=== PATIENT | female | born 1960 | race Caucasian/White ===

== ENCOUNTER 2020-08-08 16:48 | Outpatient (REF) | payer OTHER, SELFPAY | END 2020-08-08 16:49 | disposition home or self-care (01) | LOC: HO.LAB 16:48 | PROVIDERS: Visit Provider Internal Medicine | DX: Z20.822 Contact with and (suspected) exposure to COVID-19 (principal) | CPT/HCPCS: 36415; C9803; U0003 ==

== ENCOUNTER 2020-09-17 11:10 | Outpatient (REF) | payer OTHER, SELFPAY | END 2020-09-17 11:11 | disposition home or self-care (01) | LOC: HO.LAB 11:10 | PROVIDERS: Visit Provider Internal Medicine | DX: Z20.822 Contact with and (suspected) exposure to COVID-19 (principal) | CPT/HCPCS: 36415; C9803; U0003; U0005 ==

== ENCOUNTER 2021-07-21 12:14 | Outpatient (REF) | payer OTHER, SELFPAY | END 2021-07-21 12:15 | disposition home or self-care (01) | LOC: HO.HMGCLDS 12:14 | PROVIDERS: Visit Provider Internal Medicine | DX: Z20.822 Contact with and (suspected) exposure to COVID-19 (principal) | CPT/HCPCS: C9803; U0003; U0005 ==

== ENCOUNTER 2021-09-19 09:39 | Outpatient (REF) | payer MEDICAID, SELFPAY ==
[2021-09-19 10:08] LABS: COVID-19 Test Negative (Negative)
== END 2021-09-19 09:40 | disposition home or self-care (01) ==
LOC: HO.LAB 09:39
PROVIDERS: Visit Provider Internal Medicine
DX: Z20.822 Contact with and (suspected) exposure to COVID-19 (principal)
CPT/HCPCS: 87635; C9803

== ENCOUNTER 2022-02-13 07:46 | Outpatient (REF) | payer OTHER, SELFPAY ==
[2022-02-13 08:27] LABS: IDNOW Serial# 9DD0AD1C
[2022-02-13 08:28] LABS: COVID-19 Test Negative (Negative)
== END 2022-02-13 07:47 | disposition home or self-care (01) ==
LOC: HO.LAB 07:46
PROVIDERS: Visit Provider Internal Medicine
DX: Z20.822 Contact with and (suspected) exposure to COVID-19 (principal)
CPT/HCPCS: 87635; C9803

== ENCOUNTER 2022-02-20 09:33 | Outpatient (REF) | payer OTHER, SELFPAY ==
[2022-02-20 10:37] LABS: COVID-19 Test Negative (Negative); IDNOW Serial# 55D5AD1C
== END 2022-02-20 09:34 | disposition home or self-care (01) ==
LOC: HO.LAB 09:33
PROVIDERS: Visit Provider Internal Medicine
DX: Z20.822 Contact with and (suspected) exposure to COVID-19 (principal)
CPT/HCPCS: 87635; C9803

== ENCOUNTER 2025-03-06 12:50 | Inpatient (IN) | payer BC, SELFPAY ==
[2025-03-06] VITALS (8 sets, daily range): BP systolic 107–153; BP diastolic 64–80; PULSE 64–83; RESP 15–18; TEMP 36.5–36.6; O2SAT 95–98; BMI 28.0
--- NOTE | ~2025-03-06 | MR_ITS ---
EXAMINATION: MR BRAIN WITHOUT CONTRAST CLINICAL INFORMATION: Subacute versus old stroke. COMPARISON: No prior MRI. Correlation made with CT and CTA head 03/06/2025. TECHNIQUE: MRI of the brain was obtained using routine sequences without contrast. Examination performed on a 1.5 Leyda Siemens high-field unit. FINDINGS: There is no diffusion restriction. There is no intracranial hemorrhage, acute infarction, mass effect, or edema. Ventricles, sulci, and cisterns are normal in size and configuration for patient age. No shift of midline. No abnormal hemosiderin deposition is identified. There are a few scattered punctate and minimally confluent foci of white matter T2 hyperintensity in the periventricular, subcortical, and hemispheric deep white matter. These foci are nonspecific but statistically most likely relate to small vessel ischemic changes. Midline structures appear normally formed. The pituitary gland appears normal. Posterior fossa structures appear normal. Cerebellar tonsils are appropriately located. Major flow voids are preserved within the skull base. The globes and orbital contents demonstrate no abnormalities. Paranasal sinuses are clear bilaterally. Nasal septum is midline without spur. The mastoids and tympanic cavities are normally aerated. Extracranial soft tissues demonstrate no abnormalities. No suspicious bone marrow changes are evident. Atlantoaxial joint is normal. MR/MR head/brain wo con IMPRESSION: 1. No evidence of intracranial hemorrhage, acute infarction, mass effect, or edema. 2. There are mild changes of small vessel ischemia. Electronically signed by: Juan Davis MD 03/07/2025 02:36 PM EDT
--- NOTE | ~2025-03-06 | CT_ITS ---
EXAMINATION: CT HEAD WITHOUT CONTRAST (STROKE PROTOCOL) CLINICAL INFORMATION: Stroke protocol. Left-sided facial numbness and left upper extremity COMPARISON: None available. TECHNIQUE: Contiguous axial imaging was performed from the skull base to vertex without intravenous administration of contrast. This CT examination was performed using dose optimization techniques as appropriate, variously including the following: *Automated exposure control *Adjustment of mA and/or kV according to patient size (this includes techniques or standardized protocols for targeted exams where dose is matched to indication/reason for exam; i.e. extremities or head) *Use of iterative reconstruction technique. DLP: 646 mGy centimeter. FINDINGS: No acute intracranial hemorrhage, mass effect, midline shift, hydrocephalus or Balderas-white matter differentiation is normal. Patchy hypodensity left periventricular white matter, left frontal pole. No dense MCA sign. Calcified plaques in the cavernous supraclinoid segments, bilaterally. 4 mm calcification at the right ICA terminus region. Posterior cranial fossa contents demonstrated no acute hemorrhage or gross mass effect. Normal position of the cerebellar tonsils. Sellar/suprasellar region demonstrated no gross masses. Poor pneumatization of the frontal sinuses. No air-fluid levels in the paranasal sinuses. Small retention cyst, left maxillary sinus. Tympanic cavities and mastoid cells are aerated. CT/CT head for STROKE IMPRESSION: No acute intracranial hemorrhage. White matter hypodensity left frontal pole likely subacute to old vascular insult/small vessel occlusive disease. Atherosclerosis disease, both ICAs pronounced at the right ICA terminus. This critical result was discussed via tiger connect with physician professional nursing assistant Yuli Null at 1:21 PM hours on on March 06, 2025. It was ascertained that the content and urgency of the report was understood at the time of direct communication. Electronically signed by: Krishan Parks MD 03/06/2025 01:24 PM EDT
--- NOTE | ~2025-03-06 | CT_ITS ---
EXAMINATION: CTA NECK WITH CONTRAST (STROKE) CTA BRAIN WITH CONTRAST (STROKE) CLINICAL INFORMATION: Suspect acute stroke. Assess for major vessel occlusion. Left facial and hand numbness. Please call report. COMPARISON: None available. TECHNIQUE: CTA of the head and neck was performed in the axial plane from the mediastinum to the skull vertex using 70 mL Omnipaque 350 intravenous contrast. Additional reformatted multiplanar images including maximum intensity projection MIP images are generated on the CT workstation. This CT examination was performed using dose optimization techniques as appropriate, variously including the following: *Automated exposure control *Adjustment of mA and/or kV according to patient size (this includes techniques or standardized protocols for targeted exams where dose is matched to indication/reason for exam; i.e. extremities or head) *Use of iterative reconstruction technique DLP: 772 mGy centimeter FINDINGS: The degree of stenosis determined by criteria similar to NASCET. Inadequate evaluation secondary to patient's motion artifact, specifically at the carotid bulbs and proximal ICAs. Chest CTA: No aneurysm or dissection, thoracic aortic arch. Calcified plaques. Neck CTA: Right CCA: Normal patency. No focal stenosis. No intimal flap. Right ICA: Tortuosity. Retropharyngeal trajectory. Normal patency. No gross intimal flap. Questionable noncalcified plaque in the proximal segment no fully evaluated due to patient's motion artifact. Left CCA: Normal patency. No focal stenosis. No intimal flap. Left ICA: Tortuosity. Normal patency. No gross focal stenosis or intimal flap. V1/V2 segments: Normal patency. No focal stenosis. No intimal flap. Codominant vertebral arteries.. Brain CTA: Anterior cerebral circulation: ICAs: Calcified plaques in the cavernous supraclinoid segments. No focal stenosis. No abrupt cut off. MCA's: Normal patency. No focal stenosis. No abrupt cut off. Bifurcation/trifurcation demonstrated no gross vascular irregularity. ACAs: Normal patency. No focal stenosis. No abrupt cut off. Ophthalmic arteries are patent. Anterior communicating artery is patent. Posterior communicating arteries are patent, the right is robust. Posterior cerebral circulation: V3/V4 segments: Normal patency. No focal stenosis. No intimal flap. Posterior inferior cerebral arteries are patent. Basilar artery is patent without focal stenosis or intimal flap. Superior cerebellar arteries are patent. Left anterior inferior cerebellar arteries patent. crystal calibrator: Normal patency. No focal stenosis. No abrupt cut off. Ancillary findings: Dominant right internal jugular bulb/internal jugular vein. Main cerebral venous sinuses are patent. No gross abnormal enhancement in the intra-axial or the extra-axial compartment of the cranium. Pulmonary patchy groundglass/mosaic pattern. Multilevel cervical spondylosis pronounced at C5-6. CT/CT angio head neck STROKE IMPRESSION: No main cerebral artery occlusion or embolus. No dissection. No gross cerebral aneurysm. Atherosclerosis disease. Retropharyngeal trajectory, right ICA. Probable small airway disease versus small pulmonary artery disease. Multilevel cervical spondylosis. Limited by patient's motion artifact. This critical test result is communicated via Emer[employer]See connect to: Physician collections assistant in the emergency department Yuli Null at 1:37 PM on March 06, 2025. Electronically signed by: Krishan Parks MD 03/06/2025 01:45 PM EDT
--- NOTE | 2025-03-06 12:55 | ECG_ITS ---
Test Reason : FACIAL NUMBNESS Blood Pressure : */* mmHG Vent. Rate : 68 BPM Atrial Rate : 68 BPM P-R Int : 186 ms QRS Dur : 90 ms QT Int : 436 ms P-R-T Axes : 35 -6 45 degrees QTcB Int : 463 ms Normal sinus rhythm Normal ECG No previous ECGs available Referred By: Yuli Georges Electronically Signed By: ABRIL HERNANDEZ MD
--- NOTE | 2025-03-06 12:56 | ED_ITS ---
HPI - General Adult General Chief complaint: General Medical Stated complaint: left side of face numb and tingliness Time Seen by Provider: 03/06/25 13:10 Source: patient and RN notes reviewed Mode of arrival: ambulatory Limitations: no limitations History of Present Illness ED Provider: Marleni Simmons PA-C HPI narrative: This is a 64-year-old female, with a past medical history of asthma, who presents emergency department with concerns of acute onset of numbness tingling into the left upper and left lower lip with associated left thumb and 2nd through 4th finger numbness and tingling which started at approximately 12:15PM. Patient reports that she was on the phone with her daughter when her symptoms started. She states that since the onset she feels as though her numbness and tingling in her left upper and lower lip have improved and she no longer has tingling into her left digits. She does endorse some mild dizziness and headache. She has been in her usual state of health. No fevers, chills, chest pain, shortness of breath, abdominal pain, nausea, vomiting or diarrhea. MD complaint: Numbness tingling in lip Onset (ago): hour(s) Radiation: non-radiation Pain Consistency: constant Relieving factors: none Exacerbating factors: none Associated symptoms: denies other symptoms Treatments prior to arrival: none Related Data Home Medications ?Medication ?Instructions ?Recorded ?Confirmed albuterol sulfate 2.5 mg/3 mL 2.5 mg inhalation Q4H wh eezing 03/06/25 03/06/25 (0.083 %) solution for nebulization albuterol sulfate 90 mcg/actuation 2 puff inhalation Q 4-6H PRN 03/06/25 03/06/25 aerosol inhaler Shortness Of Breath Or Wheez ing omega-3 fatty acids 1,000 mg 1,000 mg PO DAILY 5 03/06/25 capsule Allergies Allergy/AdvReac Type Severity Reaction Status Date / Time No Known Allergies Allergy Verified 03/06/25 12:56 Review of Systems 2 Review of Systems: Yes all other systems are reviewed and are negative Constitutional: Constitutional: Reports as per [facility] Past Medical History Attestation statement: The following information was validated with the patient. Social History Social History Patient Tobacco Use Status: Never used Tobacco Advance Directives: No Advance Directives Information Provided: No Do you have a plan to hurt others: No Plan Nutrition Risks: No Nutritional Risk Physical Exam ED Vital Signs: Vital Signs - 24 hr 03/06/25 12:53 03/06/25 13:24 03/06/25 13:40 Temperature 98 F Pulse Rate 83 71 78 Respiratory Rate 18 15 17 Blood Pressure 153/80 H 139/69 132/64 Pulse Oximetry 97 95 97 Oxygen Delivery Method Room Air Room Air Room Air BMI result Body Mass Index 28.0 Const General: cooperative, comfortable and no acute distress Orientation/consciousness: patient oriented x3 Limitations: no limitations HENMT Head: Yes normal to inspection, Yes normocephalic and Yes atraumatic Ears: hearing grossly normal bilaterally General nose exam: Normal external nose present Face and sinus: Yes normal facial exam Mouth: Normal oral and palatal mucosa present, oropharynx normal and moist mucous membranes Throat: Yes posterior oropharynx normal Eyes General: appearance normal, both eyes and all related structures Eyelids: Yes eyelids normal Conjunctivae: conjunctivae normal Sclerae: sclerae normal Pupils: Equal, round and reactive pupils present EOM: EOMs intact bilaterally Neck Neck: Yes normal visual inspection, Yes full ROM and Yes no lymphadenopathy Lymphatic: no lymphadenopathy noted Chest Chest palpation & inspection: normal inspection of the chest Resp Effort & Inspection: normal respiratory effort and able to speak in complete sentences Auscultation: clear to auscultation bilaterally, no crackles, no rales, no rhonchi and no wheezes Cardio Rate: regular rate Rhythm: regular rhythm Heart sounds: S1 normal heart sound present and S2 normal heart sound present GI Inspection: Yes normal to inspection Skin General skin exam: no rashes or lesions noted Trauma: no lacerations or abrasions Wounds: no wounds Neuro General: patient oriented x3 and moves all extremities Cranial nerves: Yes CN's II-XII intact bilaterally and Yes Equal, round and reactive pupils present Gait exam (Neuro): Normal gait present Motor exam (neuro): 5/5 motor strength present throughout Coordination: [id number] test normal Romberg Test: Negative Pupils: Normal pupillary reactivity/response: bilateral Extrem General: Yes normal to inspection Right upper extremity: normal to inspection Left upper extremity: normal to inspection Right lower extremity: normal to inspection Left lower extremity: normal to inspection NIH Stroke Scale Internal: Initial- Upon Arrival Time: 13:25 Level of Consciousness: Alert Level of Consciousness Questions: Answers both questions correctly Level of Consciousness Commands: Performs both tasks correctly Best Gaze: Normal Visual: No visual loss Facial Palsy: Normal Motor Arm (Right): No drift Motor Arm (Left): No drift Motor Leg (Right): No drift Motor Leg (Left): No drift Limb Ataxia: Absent Sensory: Normal Best Language: No aphasia Dysarthia: Normal Extinction and Inattention: No abnormality Score: 0 Course Course Course Narrative: This is a Rapid Medical Examination (RME) performed by Doris Georges PA-C in triage. Full HPI, ROS, assessment and treatment plan per primary provider in the Main ED. Hx: 64 yo F here w/ left facial numbness around left upper lip x15 mins, slowly resolving. feels like the area is waking up now . also reports numbness to left thumb and finger tips of left hand. assoc mild headache and dizziness. no hx VTE. no thinners. PE/vitals: NIH 0. well appearing, ambulating w/ steady gait. Plan: stroke protocol ordered. patient brought back to CT Medications Administered Discontinued Medications Generic Name Dose Route Start Last Admin Trade Name Freq PRN Reason Stop Dose Admin Aspirin 81 mg 03/06/25 13:45 03/06/25 14:03 Aspirin 81 Mg Tab.Chew PO 03/06/25 13:46 81 mg ONCE ONE Administration Iohexol 100 ml 03/06/25 13:20 03/06/25 13:20 Iohexol 350 Mg/Ml 100 Ml Infus..Btl IV 03/06/25 13:21 70 ml ONCE ONE Administration Medical Decision Making Medical Decision Making [facility] Narrative: This is a 64-year-old female, with a past medical history of asthma, who presents emergency department with concerns of acute onset of numbness tingling into the left upper and left lower lip with associated left thumb and 2nd through 4th finger numbness and tingling which started at approximately 12:15PM. On arrival, patient mildly hypertensive at 153/80, all other vital signs within normal limits. She is speaking full sentences under no acute distress. She has an NIH score of 0, she is not a TNK candidate. Patient was made a stroke alert by the triage provider. Course: 1:46 PM 03/06/2025 (Marleni Simmons PA-C): CT head without contrast revealing no acute intracranial hemorrhage, there is a white matter hypodensity left frontal pole likely subacute to old vascular insult/small vessel occlusive disease, atherosclerotic disease both ICAs pronounced at the right ICA terminus. CT angio negative for any acute findings. Labs returned, she has no leukocytosis, stable H&H, chemistry revealing no significant electrolyte derangement, triglycerides elevated at 263, cholesterol 207, LDL 118, HDL 37. EKG normal sinus rhythm with no STEMI appreciated. Given patient has elevated lipid panel, as well as old vascular insult/small vessel occlusive disease, with these symptoms, patient will be best served on the medical service for MRI to rule out TIA. Discussed case with my attending physician, Dr. Gonzales, we will give Asprin 81mg PO. Discussed with hospitalist, transfer of care initiated Differential Diagnosis Differential Diagnoses: The differential diagnosis associated with the presentation includes TIA, CVA, anxiety, electrolyte derangement Lab Data [facility] Lab Attestation statement: I reviewed the patient's lab results. See MDM and course 03/06/25 13:05 03/06/25 13:05 Labs: Lab Results 03/06/25 03/06/25 Range/Units 13:04 13:05 WBC 5.6 (4.8-10.8) X10*3/uL RBC 5.32 (4.20-5.50) X10*6/uL Hgb 13.8 (12.0-16.0) g/dl Hct 41.6 (37.0-47.0) % MCV 78.2 L (80.0-98.0) fL MCH 25.9 L (27.0-33.0) pg MCHC 33.2 (31.0-35.0) g/dl RDW 13.8 (11.0-16.0) % Plt Count 203 (160-400) X10*3/uL MPV 10.5 (9.4-12.3) fL Immature Gran % (Auto) 0.2 (0.0-0.4) % Neut % (Auto) 48.9 (45-73) % Lymph % (Auto) 40.1 H (20-40) % Stone % (Auto) 7.2 (2-11) % Eos % (Auto) 2.7 (0-4) % Baso % (Auto) 0.9 (0-2) % Lymph # (Auto) 2.2 (1.2-4.9) X10*3/uL Stone # (Auto) 0.4 (0.1-1.2) X10*3/uL Eos # (Auto) 0.2 (0.0-0.4) X10*3/uL Baso # (Auto) 0.1 (0.0-0.2) X10*3/uL Abs Immat Gran (auto) 0.01 (0.00-0.03) X10*3/uL Absolute Neuts (auto) 2.7 (2.0-8.3) x10*3/uL Absolute Nucleated RBC 0.000 (0.0-0.012) X10*3/uL Nucleated RBC % (auto) 0.0 (0.0-0.2) /100WBC PT 10.6 L (10.9-12.4) SEC INR 0.9 (0.9-1.1) APTT 28.6 (26.7-34.1) SEC Sodium 141 (135-145) mmol/L Potassium 4.1 (3.3-5.1) mmol/L Chloride 108 (96-108) mmol/L Carbon Dioxide 25 (22-29) mmol/L Anion Gap 12 (12-20) BUN 17 H (9-16) mg/dL Creatinine 0.64 (0.5-1.4) mg/dL Estim Creat Clear Calc 88.7 Estimated GFR > 60 POC Glucose 112 (60-115) mg/dL Random Glucose 104 (60-115) mg/dL Calcium 9.3 (8.4-10.2) mg/dL Troponin I High Sens < 2.7 (<3.5-17.0) ng/L Triglycerides 263 H (<150) mg/dL Cholesterol 207 H (<200) mg/dL LDL Cholesterol, Calc 118 H (<100) mg/dL HDL Cholesterol 37 L (>40) mg/dL Radiology Impression Discussion of test interpretation with radiology: I have reviewed the radiologist's reading. Radiologist Impression: COMPARISON: None available. TECHNIQUE: CTA of the head and neck was performed in the axial plane from the mediastinum to the skull vertex using 70 mL Omnipaque 350 intravenous contrast. Additional reformatted multiplanar images including maximum intensity projection MIP images are generated on the CT workstation. This CT examination was performed using dose optimization techniques as appropriate, variously including the following: *Automated exposure control *Adjustment of mA and/or kV according to patient size (this includes techniques or standardized protocols for targeted exams where dose is matched to indication/reason for exam; i.e. extremities or head) *Use of iterative reconstruction technique DLP: 772 mGy centimeter FINDINGS: The degree of stenosis determined by criteria similar to NASCET. Inadequate evaluation secondary to patient's motion artifact, specifically at the carotid bulbs and proximal ICAs. Chest CTA: No aneurysm or dissection, thoracic aortic arch. Calcified plaques. Neck CTA: Right CCA: Normal patency. No focal stenosis. No intimal flap. Right ICA: Tortuosity. Retropharyngeal trajectory. Normal patency. No gross intimal flap. Questionable noncalcified plaque in the proximal segment no fully evaluated due to patient's motion artifact. Left CCA: Normal patency. No focal stenosis. No intimal flap. Left ICA: Tortuosity. Normal patency. No gross focal stenosis or intimal flap. V1/V2 segments: Normal patency. No focal stenosis. No intimal flap. Codominant vertebral arteries.. Brain CTA: Anterior cerebral circulation: ICAs: Calcified plaques in the cavernous supraclinoid segments. No focal stenosis. No abrupt cut off. MCA's: Normal patency. No focal stenosis. No abrupt cut off. Bifurcation/trifurcation demonstrated no gross vascular irregularity. ACAs: Normal patency. No focal stenosis. No abrupt cut off. Ophthalmic arteries are patent. Anterior communicating artery is patent. Posterior communicating arteries are patent, the right is robust. Posterior cerebral circulation: V3/V4 segments: Normal patency. No focal stenosis. No intimal flap. Posterior inferior cerebral arteries are patent. Basilar artery is patent without focal stenosis or intimal flap. Superior cerebellar arteries are patent. Left anterior inferior cerebellar arteries patent. director of logistics: Normal patency. No focal stenosis. No abrupt cut off. Ancillary findings: Dominant right internal jugular bulb/internal jugular vein. Main cerebral venous sinuses are patent. No gross abnormal enhancement in the intra-axial or the extra-axial compartment of the cranium. Pulmonary patchy groundglass/mosaic pattern. Multilevel cervical spondylosis pronounced at C5-6. CT/CT angio head neck STROKE IMPRESSION: No main cerebral artery occlusion or embolus. No dissection. No gross cerebral aneurysm. Atherosclerosis disease. Retropharyngeal trajectory, right ICA. Probable small airway disease versus small pulmonary artery disease. Multilevel cervical spondylosis. Limited by patient's motion artifact. This critical test result is communicated via [employer] connect to: Physician orthodontic assistant in the emergency department Yuli Null at 1:37 PM on March 06, 2025. Electronically signed by: Krishan Parks MD 03/06/2025 01:45 PM EDT RP Dictated By: Krishan Ballard MD COMPARISON: None available. TECHNIQUE: Contiguous axial imaging was performed from the skull base to vertex without intravenous administration of contrast. This CT examination was performed using dose optimization techniques as appropriate, variously including the following: *Automated exposure control *Adjustment of mA and/or kV according to patient size (this includes techniques or standardized protocols for targeted exams where dose is matched to indication/reason for exam; i.e. extremities or head) *Use of iterative reconstruction technique. DLP: 646 mGy centimeter. FINDINGS: No acute intracranial hemorrhage, mass effect, midline shift, hydrocephalus or Balderas-white matter differentiation is normal. Patchy hypodensity left periventricular white matter, left frontal pole. No dense MCA sign. Calcified plaques in the cavernous supraclinoid segments, bilaterally. 4 mm calcification at the right ICA terminus region. Posterior cranial fossa contents demonstrated no acute hemorrhage or gross mass effect. Normal position of the cerebellar tonsils. Sellar/suprasellar region demonstrated no gross masses. Poor pneumatization of the frontal sinuses. No air-fluid levels in the paranasal sinuses. Small retention cyst, left maxillary sinus. Tympanic cavities and mastoid cells are aerated. CT/CT head for STROKE IMPRESSION: No acute intracranial hemorrhage. White matter hypodensity left frontal pole likely subacute to old vascular insult/small vessel occlusive disease. Atherosclerosis disease, both ICAs pronounced at the right ICA terminus. This critical result was discussed via [employer] connect with physician orthodontic assistant Yuli Null at 1:21 PM hours on on March 06, 2025. It was ascertained that the content and urgency of the report was understood at the time of direct communication. Electronically signed by: Krishan Parks MD 03/06/2025 01:24 PM EDT RP Dictated By: Krishan Ballard MD External Record Review External record reviewed: Inpatient record, Office record, Outpatient record, Prior outpatient labs, Prior outpatient radiology, Primary care record and Outside ED record Critical Care Time Critical Care Time Critical Care Time: Yes Total Critical Care Time: 63 Attestation: I have personally provided critical care time exclusive of time spent on separately billable procedures. Time includes review of lab data, radiology results, discussion with consultants, and monitoring for potential decompensation. Intervention performed as documented. Discharge Plan Discharge Clinical Impression: Left facial numbness Patient Disposition: Admitted As Inpatient Interventions: Admission Worksheet (ED) Last Done: 03/06/25 16:17
--- NOTE | 2025-03-06 13:00 | PC.NURSE ---
Pt brought back from triage. Presented with sudden onset left arm numbness/tingling, slight left nasolabial droop. Clear speech. A/ox4. MAEE with good strength. PERLLA. Denies headache, n/v. 18LAC placed and pt taken to CT. POC done and charted. Plan of care ongoing
[2025-03-06 13:09] LABS: Glucose, Whole Blood 112 mg/dL (60-115)
[2025-03-06 13:10] LABS: MANUAL DIFF FLAG NO
[2025-03-06 13:12] LABS: Hematocrit 41.6 % (37.0-47.0); Hemoglobin 13.8 g/dl (12.0-16.0); Imm Gran Abs Auto 0.01 X10*3/uL (0.00-0.03); Imm Gran Pct Auto 0.2 % (0.0-0.4); Lymphocytes Absolute Auto 2.2 X10*3/uL (1.2-4.9); Mean Corpuscular HGB Conc 33.2 g/dl (31.0-35.0); Mean Corpuscular Hemoglobin 25.9 pg (27.0-33.0); Mean Corpuscular Volume 78.2 fL (80.0-98.0); NRBC Abs Auto 0.000 X10*3/uL (0.0-0.012); NRBC Pct Auto 0.0 /100WBC (0.0-0.2); Platelet Count 203 X10*3/uL (160-400); Red Blood Count 5.32 X10*6/uL (4.20-5.50); White Blood Count 5.6 X10*3/uL (4.8-10.8)
[2025-03-06 13:18] LABS: INTERNATIONAL NORM RATIO 0.9 (0.9-1.1); Prothrombin Time 10.6 SEC (10.9-12.4)
[2025-03-06] MEDS: iohexoL 350 MG/ML 100 ML INFUS..BTL IV (13:20)
[2025-03-06 13:21] LABS: Partial Thromboplastin Time 28.6 SEC (26.7-34.1)
[2025-03-06 13:31] LABS: Anion Gap 12 (12-20); Blood Urea Nitrogen 17 mg/dL (9-16); Calcium 9.3 mg/dL (8.4-10.2); Carbon Dioxide 25 mmol/L (22-29); Chloride 108 mmol/L (96-108); Cholesterol 207 mg/dL (<200); Creatinine Clr Calc Pharmacy 88.7; Estimated Glomerular Filt Rate > 60; HDL Cholesterol 37 mg/dL (>40); Potassium 4.1 mmol/L (3.3-5.1); Sodium 141 mmol/L (135-145); Triglycerides 263 mg/dL (<150)
[2025-03-06 13:32] LABS: Stroke Lab Use COMPLETE
[2025-03-06 13:36] LABS: Troponin-I High Sensitivity < 2.7 ng/L (<3.5-17.0)
--- OUTSIDE RECORDS SUMMARY | 2025-03-06 14:56 | XMS_ITS | Clinical Summary ---
Author Organization [facility] Address [address] [place] [address] Phone Care Team Providers Care Visor Installer Name Role Phone Unavailable Primary Care Provider Unavailabl e Allergies No known active allergies Encounters Date Type Department Care Team Description 12/14/2024 Telephone [facility] [address] [place] [id number] Aparna Joel MD Results from Last 3 Months Surgical History Surgery Date Site/Laterality Comments SECTION PROCEDURE: HISTORICAL APPENDECTOMY PROCEDURE: HISTORICAL APPENDECTOMY TUBAL LIGATION PROCEDURE: HISTORICAL TUBAL LIGATION Medical History Medical History Date Comments Gastritis DX:Gastritis Family History Medical History Relation Name Comments Other cancer Mother Relation Name Status Comments Mother Social History Tobacco Use Types Packs/Day Years Used Date Smoking Tobacco: Never Alcohol Use Standard Drinks/Week Comments No 0 (1 standard drink = 0.6 oz pur e alcohol) Comments Unknown Sex and Gender Information Value Date Recorded Sex Assigned at Not on file Legal Sex Female 7:42 PM EDT Gender Identity Not on file Sexual Orientation Not on file Obstetrics History Plan of Treatment Health Maintenance Due Date Last Done Comments Breast Cancer Screening 1961 Pneumococcal Vaccine: 50+ Years (1 of 2 - PCV) 1980 Cervical Cancer Screening: P ap Smear 1982 Zoster Vaccines (1 of 2) 2011 RSV Immunization Adult Patients (1 - Risk 60-74 years 1-dose series) 2021 Cholesterol Screening (Lipid Panel) 01/02/2022 Colorectal Cancer Screening: Colonoscopy 01/02/2022 HIV Screening 01/02/2022 Hepatitis C Screening 01/02/2022 Social Influencers of Health Screening 01/02/2022 COVID-19 Vaccine (1 - 2023-2 5 season) 2024 Depression Screening 07/19/2024 Influenza Vaccine (#1) 2025 DTaP,Tdap,and Td Vaccines (3 - Td or Tdap) 08/15/2031 08/15/2021, 09/13/2008 HIB Vaccines Aged Out No longer eligi ble based on patient's age to complete this topic HPV Vaccines Aged Out No longer eligi ble based on patient's age to complete this topic Hepatitis A Vaccines Aged Out No long er eligible based on patient's age to complete this topic Hepatitis B Vaccines Aged Out No long er eligible based on patient's age to complete this topic IPV Vaccines Aged Out No longer eligi ble based on patient's age to complete this topic MMR Vaccines Aged Out No longer eligi ble based on patient's age to complete this topic Meningococcal ACWY Vaccine Aged Out N o longer eligible based on patient's age to complete this topic Meningococcal B Vaccine Aged Out No l onger eligible based on patient's age to complete this topic RSV Immunization Patients Under 20 months Aged Out No longer eligible b ased on patient's age to complete this topic Varicella Vaccines Aged Out No longer eligible based on patient's age to complete this topic [place] [address] [employer] Member Subscriber Plan / Payer (Ef fective 2024-Present) Name:Shanae Stoll Relation to Subscriber:Spouse Name:ALEK STOLL (Home) Address: [address] [place] [address] Payer ID:[id number] (NAIC) Type:Not on file Address: [address] [place] [id number]
--- OUTSIDE RECORDS SUMMARY | 2025-03-06 14:56 | XMS_ITS ---
Author Name [facility] Organization Unknown Care Team Organization Name Specialty Phone Email Start Date End Da te [facility] NULL Primary Care 07/27/2022 03/06/2024 [facility] NULL Primary Care 05/26/2022 03/06/2024
--- OUTSIDE RECORDS SUMMARY | 2025-03-06 14:56 | XMS_ITS | Patient Health Record ---
Author Organization [facility] Address [address] [place] [address] [address] [place] [address] Care Team Providers Care Signal Engineer Name Role Phone FROILAN DELAROSA, ISA Primary Care Provider Unavail able MARLA JUAN J Unavailable [phone] Allergies No Known Allergies Reason For Referral No Information Medications Medication SIG (Take, Route, Frequency, Duration) Notes Start Date End Date Status Bactrim DS 800-160 MG 1 tablet Orally Tw ice a day; Duration: 4 days 01/14/2024 Active Albuterol Sulfate HFA 108 (90 Base) MCG/ACT Inhalation; Duration: 17 Active Erie-3 1000 MG 1 capsule Orally Onc e a day; Duration: 30 day(s) Active Social History Tobacco Use: Social History Observation Description Date Details (start date - stop date) Former Smoker NA - NA Tobacco Use/Smoking Question Answer Notes Are you a former smoker How long has it been since you last smoked? > 10 years Additional Findings: Tobacco Non-User Ex-light c igarette smoker (1-9/day) Alcohol Screen (Audit-C) Question Answer Notes Did you have a drink containing alcohol in the p ast year? No Points 0 Interpretation Negative Section Notes: Quit smoking in early Quit smoking in early Quit smoking in early Problems Problem Type SNOMED Code ICD Code Onset Dates Problem Status W/U Status Risk Notes Problem Hyperlipidemia (23960535) Hyperlipidemia, unspecified (E78.5) Active confirmed Problem Asthma (054557736) Other asthma (J45.998) Active confirmed Plan Of Treatment Pending Test Test Name Order Date THIN PREP,HPV,LUIS A IF HPV+ (>29YR)(DIAG) 12/03/2022 MM Digital Screening Mammogram 3D 2022 Insurance Providers Payer Name Payer Address Payer Phone Subscriber Number Group Number Insured Name Patient Relationship to Insured Coverage Start Date Coverage End Date [employer] [address] [place] [address] [id number] ALEK CRUZ Spouse - patient is the spouse of the insured Medical (General) History Medical History History ICD Code Hyperlipidemia, unspecified E78.5 Other asthma J45.998 Surgical History Surgery Date(Month/Year) Appendectomy 1975 Colonoscopy 04/03/22 x 3 Hospitalization History Reason Date(Month/Year) See Surgical History Chilbirth
--- NOTE | 2025-03-06 15:09 | PC.NURSE ---
Nurse bedside swallow study done. No difficulty swallowing. Passed per swallow study protocol.
--- NOTE | 2025-03-06 15:34 | PHA.MEDREC ---
Addendum entered by Ulysses Odonnell, PharmD 03/06/25 15:53: MED REC CHECKED BY [facility] Original Note: Pharmacy Consult ? Medication Reconciliation Pharmacy has completed the medication reconciliation. Spoke with pt and she confirmed her medicaiotns.
--- NOTE | 2025-03-06 15:41 | PC.NURSE ---
Pt ambulated to bathroom without the use of assistive devices. Denies neurological deficits at this time.
--- NOTE | 2025-03-06 15:53 | P.HPHOSP_ITS ---
History of Present Illness Date of Service: 03/06/25 Chief Complaint: Facial numbness 64-year-old female with a history of asthma who presented with facial numbness onset 15 minute before commenting. She also reports symptoms of numbness in the thumb, headache and dizziness. CT head show White matter hypodensity left frontal pole likely subacute to old vascular insult/small vessel occlusive disease. Her symptoms are nearly all resolved. Review of Systems 2 Review of Systems: Facial numbness otherwise all other system reviewed are negative. [facility] Social History Patient Tobacco Use Status: Never used Tobacco Advance Directives: No Advance Directives Information Provided: No Do you have a plan to hurt others: No Plan Nutrition Risks: No Nutritional Risk service: No Meds Allergies Allergy/AdvReac Type Severity Reaction Status Date / Time No Known Allergies Allergy Verified 03/06/25 12:56 Home Medications ?Medication ?Instructions ?Recorded ?Confirmed ?Last Taken ?Type albuterol sulfate 2.5 mg/3 mL 2.5 mg inhalation Q4H wh eezing 03/06/25 03/06/25 Unknown History (0.083 %) solution for nebulization albuterol sulfate 90 mcg/actuation 2 puff inhalation Q 4-6H PRN 03/06/25 03/06/25 Unknown History aerosol inhaler Shortness Of Breath Or Wheez ing omega-3 fatty acids 1,000 mg 1,000 mg PO DAILY 5 03/06/25 03/05/25 History capsule Physical Exam 2 Vital Signs and Narrative: Vital Signs: Last Vital Signs Temp 98 F 03/06/25 12:53 Pulse 67 03/06/25 14:24 Resp 18 03/06/25 14:24 BP 107/74 03/06/25 14:24 Pulse Ox 98 03/06/25 14:24 O2 Del Method Room Air 03/06/25 14:24 BMI result Body Mass Index 28.0 Const: Other: General: AO X 3, no acute distress HEENT:normal eye movement Resp: CTA bilateral CVS: S1,S2,RRR GI: +BS, NT, no distention Skin: No rash Neuro: motor grossly intact, coordination intact, strenght intact, CN 2to 12 intact, gait intact, Psych: appropriate affect Results Labs 03/06/25 13:05 03/07/25 04:13 Labs: Laboratory Results - last 24 hr 03/06/25 03/06/25 13:04 13:05 MCV 78.2 L MCH 25.9 L MCHC 33.2 RDW 13.8 Plt Count 203 MPV 10.5 Immature Gran % (Auto) 0.2 Neut % (Auto) 48.9 Lymph % (Auto) 40.1 H [place] % (Auto) 7.2 Eos % (Auto) 2.7 Baso % (Auto) 0.9 Lymph # (Auto) 2.2 [place] # (Auto) 0.4 Eos # (Auto) 0.2 Baso # (Auto) 0.1 Abs Immat Gran (auto) 0.01 Absolute Neuts (auto) 2.7 Absolute Nucleated RBC 0.000 Nucleated RBC % (auto) 0.0 PT 10.6 L INR 0.9 APTT 28.6 Anion Gap 12 Estim Creat Clear Calc 88.7 Estimated GFR > 60 POC Glucose 112 Random Glucose 104 Calcium 9.3 Triglycerides 263 H Cholesterol 207 H LDL Cholesterol, Calc 118 H HDL Cholesterol 37 L Imaging Radiologist's Impressions: Impressions Head CT 03/06/25 11:59 IMPRESSION: No acute intracranial hemorrhage. White matter hypodensity left frontal pole likely subacute to old vascular insult/small vessel occlusive disease. Atherosclerosis disease, both ICAs pronounced at the right ICA terminus. This critical result was discussed via Outright with physician research assistant professor uYli Null at 1:21 PM hours on on March 06, 2025. It was ascertained that the content and urgency of the report was understood at the time of direct communication. Electronically signed by: Krishan Parks MD 03/06/2025 01:24 PM EDT Head/Neck CTA 03/06/25 13:09 IMPRESSION: No main cerebral artery occlusion or embolus. No dissection. No gross cerebral aneurysm. Atherosclerosis disease. Retropharyngeal trajectory, right ICA. Probable small airway disease versus small pulmonary artery disease. Multilevel cervical spondylosis. Limited by patient's motion artifact. This critical test result is communicated via ARI connect to: Physician research assistant professor in the emergency department Yuli Null at 1:37 PM on March 06, 2025. Electronically signed by: Krishan Parks MD 03/06/2025 01:45 PM EDT Assessment and Plan (1) Stroke: Status: Acute Plan 64-year-old female with a history of asthma who presented with facial numbness onset 15 minute before commenting. She also reports symptoms of numbness in the thumb, headache and dizziness. CT head show White matter hypodensity left frontal pole likely subacute to old vascular insult/small vessel occlusive disease. Her symptoms are nearly all resolved. Subacute CVA, facial numness MRI of head to further delineate Lipitor, ASA Neuro consult [facility] lipid in the morning telemetry monitor to exclude afib echo to rule out intracardiac clot Moderate Persistent Astham, no exacerbtion, inhalers PRN DVT prophylaxis--Lovenox Full code Regular diet PT does not have language/speech, Physical or cognitive deficit and therefore PT, OT or Speech eval is not warranted at this time. Quality Stroke Does the patient have a stroke diagnosis?: Yes Reason for No Anti-thrombotic by Day Two: Not indicated VTE Prior VTE?: No VTE Risk Level:: Medical - moderate - high VTE Device Contraindication: Treatment Not Indicated VTE Drug Contraindication: N/A - Med Ordered
--- NOTE | 2025-03-06 15:55 | MHC.STROKE ---
Met with patient and family in room 6. Pt awake, alert and oriented x 4. Pt reported sudden onset of numbness and tingling to left upper and lower lip along with some numbness to her fingers. She reported mild headache earlier today. Pt states symptoms improving. Ambulatory to bathroom with this RN. Gait steady. Denies dizziness. Stroke education provided to patient/family. Pamphlet given/reviewed. All questions answered. Risk factors discussed including medical hx, medications, social hx, diet/activity. Pt/family aware and agreeable to plan of care. Will continue to assist as needed.
[2025-03-06] MEDS: Aspirin Enteric Coated 81 MG TABLET.DR PO (21:20)
[2025-03-07 04:37] VITALS: BP 122/68; PULSE 62; RESP 14; TEMP 36.6; O2SAT 95
[2025-03-07 05:21] LABS: Alanine Aminotransferase 26 U/L (0-31); Albumin Level 4.0 g/dL (3.5-5.0); Alkaline Phosphatase 122 U/L (39-117); Anion Gap 13 (12-20); Aspartate Amino Transferase 26 U/L (5-31); Blood Urea Nitrogen 19 mg/dL (9-16); Calcium 9.2 mg/dL (8.4-10.2); Carbon Dioxide 25 mmol/L (22-29); Chloride 108 mmol/L (96-108); Cholesterol 200 mg/dL (<200); Creatinine Clr Calc Pharmacy 83.4; Estimated Glomerular Filt Rate > 60; HDL Cholesterol 35 mg/dL (>40); Potassium 3.7 mmol/L (3.3-5.1); Sodium 142 mmol/L (135-145); Total Protein 6.8 g/dL (6.5-8.0); Triglycerides 252 mg/dL (<150)
--- NOTE | 2025-03-07 07:00 | CA_ITS ---
Transthoracic Echocardiogram Patient (Last, First, Middle): Shanae Stoll, Gender: Female Date of : 1960 Age: 64 Procedure Date: 03/07/2025 Procedure Type: Transthoracic Echocardiogram Location: ER Height: 162.56 cm Weight: 73.94 kg BSA: 1.79 m2 Heart Rate: bpm BP: 122 / 68 mmHg Metal Sprayer: REECE Referring MD: Kameron Romero MD Marbleizing Machine Tender: Bandar Ivan MD Symptoms: stroke, rule intracardiac clot Study Quality: Adequate ECG Rhythm: Sinus Conclusions: - 1. Normal LV ejection fraction 55-60% with mild LVH with impaired relaxation filling pattern 2. Cardiac valvular Dopplers within normal limits 3. Intracardiac shunting can not be entirely ruled out on this study Findings Left Ventricle Normal left ventricular size and systolic function. There is mildly increased left ventricular wall thickness. The visually estimated ejection fraction is between 55-60%. Spectral Doppler is indicative of an impaired relaxation filling pattern. Elevated filling pressures. Right Ventricle Normal right ventricular cavity size and systolic function. Atria The left atrium is normal in size. Interatrial shunt cannot be excluded. The right atrium was not well visualized. Aortic Valve The aortic valve structure and function is likely normal. There is no aortic valve stenosis. There is no aortic valve regurgitation. Mitral Valve Likely normal mitral valve structure and function. There is trace mitral valve regurgitation. There is no mitral valve stenosis. Pulmonic Valve The pulmonic valve was not well visualized. Tricuspid Valve The right ventricular systolic pressure is not calculated. Indeterminate right atrial pressure. Great Vessels The aorta was not well visualized. The pulmonary artery was not well visualized. Venous The inferior vena cava is normal in size. Pericardium/Pleural The pericardium was not well visualized. Prior Study Comparison No prior study available for comparison. Recommendations, Care & Conclusions Consider a SATINDER if clinically appropriate. Measurements 2D Linear Measurements IVSd: 1.23 0.6-0.9/0.6-1.0 cm LVIDd: 3.68 3.9-5.3/4.2-5.9 cm LVIDd Index: 2.06 2.4-3.2/2.2-3.1 cm/m2 LVIDs: 2.56 2.0-3.6 cm LVPWd: 1.25 0.7-1.1 cm LA Diam: 3.20 2.7-3.8/3.0-4.0 cm LAIDs Index: 1.79 1.5-2.3 cm/m2 LV Mass: 191.27 67-162/88-224 g LV Mass Index: 106.85 43-95/49-115 g/m2 LVOT Diam: 2.10 3.0+(-)1.3 cm 2D Systolic Function EF 4C: 49.30 >55% EF 2C: 62.00 >55% EF BiP: 55.50 >55% Mitral Valve MV Pk E: 0.83 MV PK A: 0.86 MV Decel Time: 211.00 E/A: 1.00 E'Lateral: 5.00 E'Medial: 5.33 E/E' Med: 15.50 E/E' Lat: 16.50 PHT: 62.00 MVA PHT: 3.55 Decel [place]et: 3.91 Aortic Valve AoV Pk Vamshi: 1.84 AoV Mn Vamshi: 1.18 AoV VTI: 0.43 AoV Pk Grad: 14.00 Aov Mn Grad: 7.00 DEANDRE Cont.VTI: 1.49 LVOT LVOT Pk Vamshi: 0.94 LVOT Mn Vamshi: 0.57 LVOT VTI: 0.18 LVOT Pk Grad: 4.00 LVOT Mn Grad: 2.00 LVOT Diam: 2.10 LVOT Area: 3.46 Diastolic Function MV Pk E: 0.83 MV Pk A: 0.86 E/A: 1.00 E'Medial: 5.33 E/E' Med: 15.50 E' Laterial: 5.00 E/E' Lat: 16.50 Right Ventricle TAPSE (mm): 23.00 Tricuspid Valve TR Pk Vamshi: 1.84 TR Pk Grad: 14.00 Great Vessels Aorta Sinus of Valsalva: 3.10 2.0-3.5 cm Ao Asc: 3.00 2.1-3.4 cm Pulmonary Valve PV Pk Vamshi: 0.94 Peak PV Grad: 4.00 Updated in Other Vendor System with Status of Final Bandar Ivan MD electronically signed on 03/07/2025 11:44:44 AM with status of Final
--- NOTE | 2025-03-07 08:11 | PC.NURSE ---
Pt resting quietly in room. Breakfast tray given to pt. Pt given toothbrush/toothpaste per request. No neuro deficits at this time. VSS. Pending bed assignment. Will continue to monitor.
--- NOTE | 2025-03-07 09:29 | MHC.CM.PN ---
[place] 03/07/25, Pt. lives with her family, she is independent, no home health services or DME. She does not have a PCP, declined brochure. HCP discussed, she declined to complete form. Family to transport home at DC, DCP: home, self care. CM to follow for DC needs.
--- NOTE | 2025-03-07 10:42 | HO.PM.IMPN ---
Subjective Subjective Date of Service: 03/07/25 Interval History: f/u on stroke, mri not yet done as machine was broken. Her symptoms have nearly resolved. Lipids are high Physical Exam Vital Signs: Vital Signs: Last Vital Signs Temp 97.8 F 03/07/25 04:37 Pulse 62 03/07/25 04:37 Resp 14 03/07/25 04:37 BP 122/68 03/07/25 04:37 Pulse Ox 95 03/07/25 04:37 O2 Del Method Room Air 03/07/25 04:37 BMI result Body Mass Index 28.0 Const: Other: General: AO X 3, no acute distress HEENT:normal eye movement Resp: CTA bilateral CVS: S1,S2,RRR GI: +BS, NT, no distention Skin: No rash Neuro: motor grossly intact, coordination intact, strenght intact, CN 2to 12 intact, gait intact, Psych: appropriate affect Objective Data Active Medications Acetaminophen (Acetaminophen 325 Mg Tablet) 650 mg PO Q6H PRN PRN Reason: Pain, Mild 1-3,fever,headache Albuterol Sulfate (Albuterol Sulfate 90 Mcg 8 Gm Inhaler) 2 puff INHALE Q4H PRN PRN Reason: Shortness Of Breath Or Wheezin Albuterol Sulfate (Albuterol Sulfate (0.083%) 2.5 Mg/3 Ml Vial.Neb) 2.5 mg INHALE RQ4H WHILE AWAKE [facility] Last Admin: 03/07/25 07:58 Dose: Not Given Documented By: REGINA Non-Admin Reason: Patient Refused Aspirin (Aspirin Enteric Coated 81 Mg Tablet.) 81 mg PO BEDTIME [facility] Last Admin: 03/06/25 21:20 Dose: 81 mg Documented By: RACHEL Atorvastatin Calcium (Atorvastatin Calcium 40 Mg Tablet) 40 mg PO BEDTIME [facility] Last Admin: 03/06/25 21:20 Dose: 40 mg Documented By: RACHEL Enoxaparin Sodium (Enoxaparin Sodium 40 Mg/0.4 Ml Syringe) 40 mg SUBCUT Q24H [facility] Last Admin: 03/06/25 18:08 Dose: 40 mg Documented By: ISLVIA Magnesium Hydroxide (Milk Of Magnesia 30 Ml Oral.Susp) 30 ml PO DAILY PRN PRN Reason: Constipation Melatonin (Melatonin 3 Mg Tablet) 6 mg PO BEDTIME PRN PRN Reason: Insomnia Ondansetron HCl (Ondansetron Hcl 4 Mg/2 Ml Vial) 4 mg IVPUSH Q8H PRN PRN Reason: Nausea and Vomiting Polyethylene Glycol (Polyethylene Glycol 3350 17 Gm Powd.Pack) 17 gm PO DAILY PRN PRN Reason: Constipation Labs 03/06/25 13:05 03/07/25 04:13 Labs: Laboratory Results - last 24 hr 03/06/25 03/06/25 03/07/25 13:04 13:05 04:13 MCV 78.2 L MCH 25.9 L MCHC 33.2 RDW 13.8 Plt Count 203 MPV 10.5 Immature Gran % (Auto) 0.2 Neut % (Auto) 48.9 Lymph % (Auto) 40.1 H [place] % (Auto) 7.2 Eos % (Auto) 2.7 Baso % (Auto) 0.9 Lymph # (Auto) 2.2 [place] # (Auto) 0.4 Eos # (Auto) 0.2 Baso # (Auto) 0.1 Abs Immat Gran (auto) 0.01 Absolute Neuts (auto) 2.7 Absolute Nucleated RBC 0.000 Nucleated RBC % (auto) 0.0 PT 10.6 L INR 0.9 APTT 28.6 Anion Gap 12 13 Estim Creat Clear Calc 88.7 83.4 Estimated GFR > 60 > 60 POC Glucose 112 Random Glucose 104 109 Calcium 9.3 9.2 Total Bilirubin 0.2 AST 26 ALT 26 Alkaline Phosphatase 122 H Total Protein 6.8 Albumin 4.0 Triglycerides 263 H 252 H Cholesterol 207 H 200 H LDL Cholesterol, Calc 118 H 115 H HDL Cholesterol 37 L 35 L Assessment and Plan (1) Stroke: Status: Acute (2) Left facial numbness: Status: Acute Plan 64-year-old female with a history of asthma who presented with facial numbness onset 15 minute before commenting. She also reports symptoms of numbness in the thumb, headache and dizziness. CT head show White matter hypodensity left frontal pole likely subacute to old vascular insult/small vessel occlusive disease. Her symptoms are nearly all resolved. Subacute CVA, facial numbness MRI of head to further delineate Lipitor, ASA Neuro consult [facility] lipid in the morning air sampling and monitoring to exclude afib echo to rule out intracardiac clot HLD, Lipitor Moderate Persistent [place], no exacerbtion, inhalers PRN DVT prophylaxis--Lovenox Full code Regular diet PT does not have language/speech, Physical or cognitive deficit and therefore PT, OT or Speech eval is not warranted at this time. Anticipating dc later afer seen by Neurologist Quality Stroke Does the patient have a stroke diagnosis?: Yes Reason for No Anti-thrombotic by Day Two: Not indicated VTE Prior VTE?: No VTE Risk Level:: Medical - moderate - high VTE Device Contraindication: Treatment Not Indicated VTE Drug Contraindication: N/A - Med Ordered
--- NOTE | 2025-03-07 10:44 | P.DS_ITS ---
DS: Providers Provider Date of Service: 03/07/25 Date of admission: 03/06/25 16:29 Date of discharge: 03/07/25 Primary care physician: None Physician Consults: 03/06/25 16:08 Consult to Neurology Routine Consulting Provider: [facility] Reason for consultation: Facial numbness DS: Diagnosis Discharge Diagnosis (1) Stroke: Status: Acute (2) Left facial numbness: Status: Acute DS: Summary Hospital Course Hospital Course: Chief Complaint: Facial numbness 64-year-old female with a history of asthma who presented with facial numbness onset 15 minute before commenting. She also reports symptoms of numbness in the thumb, headache and dizziness. CT head show White matter hypodensity left frontal pole likely subacute to old vascular insult/small vessel occlusive disease. Her symptoms are nearly all resolved. hospital course 64-year-old female with a history of asthma who presented with facial numbness onset 15 minute before commenting. She also reports symptoms of numbness in the thumb, headache and dizziness. CT head show White matter hypodensity left frontal pole likely subacute to old vascular insult/small vessel occlusive disease. Her symptoms are nearly all resolved. have resolved. No afib noted on monitor. Echo no intracardia clot. MRI no hemorrhage, or acute infarct. Lipid show TG of 252, Chol 200, LDL 115, HDL 35... started on Lipitor 40. Outpatient follow up with PCP. Given that MRI did not show acute stroke, or subacute stroke as stated on CT, and her symptoms resolved, she likely had a TIA. HLD, Lipitor Moderate Persistent [place], no exacerbtion, inhalers PRN Time Attestation Discharge Coordination Time (in mins): 35 Quality: Safe Use of Opioids Does Pt have an Active Cancer Diagnosis on the Problem List?: No Quality: Stroke Does the patient have a stroke diagnosis?: No Physical Exam Vital Signs: Vital Signs: Last Vital Signs Temp 97.8 F 03/07/25 04:37 Pulse 62 03/07/25 04:37 Resp 14 03/07/25 04:37 BP 122/68 03/07/25 04:37 Pulse Ox 95 03/07/25 04:37 O2 Del Method Room Air 03/07/25 04:37 BMI result Body Mass Index 28.0 DS: Data Data Completed and Pending Labs on day of discharge: Laboratory Results - last 24 hr 03/06/25 03/06/25 03/07/25 13:04 13:05 04:13 WBC 5.6 RBC 5.32 Hgb 13.8 Hct 41.6 MCV 78.2 L MCH 25.9 L MCHC 33.2 RDW 13.8 Plt Count 203 MPV 10.5 Immature Gran % (Auto) 0.2 Neut % (Auto) 48.9 Lymph % (Auto) 40.1 H [place] % (Auto) 7.2 Eos % (Auto) 2.7 Baso % (Auto) 0.9 Lymph # (Auto) 2.2 [place] # (Auto) 0.4 Eos # (Auto) 0.2 Baso # (Auto) 0.1 Abs Immat Gran (auto) 0.01 Absolute Neuts (auto) 2.7 Absolute Nucleated RBC 0.000 Nucleated RBC % (auto) 0.0 PT 10.6 L INR 0.9 APTT 28.6 Sodium 141 142 Potassium 4.1 3.7 Chloride 108 108 Carbon Dioxide 25 25 Anion Gap 12 13 BUN 17 H 19 H Creatinine 0.64 0.68 Estim Creat Clear Calc 88.7 83.4 Estimated GFR > 60 > 60 POC Glucose 112 Random Glucose 104 109 Calcium 9.3 9.2 Total Bilirubin 0.2 AST 26 ALT 26 Alkaline Phosphatase 122 H Troponin I High Sens < 2.7 Total Protein 6.8 Albumin 4.0 Triglycerides 263 H 252 H Cholesterol 207 H 200 H LDL Cholesterol, Calc 118 H 115 H HDL Cholesterol 37 L 35 L Discharge Plan Discharge Anticipated Discharge Date/Time: 03/07/25 15:00 Patient Disposition: Home, Self-Care Discharge Diagnosis: TIA Referrals: Physician,None [Primary Care Provider, Medical] - 1 Week Discharge Medications: New aspirin 81 mg Tablet,Delayed Release (Dr/Ec) 81 mg PO BEDTIME Qty: 90 0RF atorvastatin 40 mg Tablet 40 mg PO BEDTIME Qty: 90 0RF Continued albuterol sulfate 2.5 mg /3 mL (0.083 %) solution for nebulization 2.5 mg inhalation Q4H omega-3 fatty acids 1,000 mg Capsule 1,000 mg PO DAILY albuterol sulfate 90 mcg/actuation HFA aerosol inhaler 2 puff INHALATION Q4-6H PRN (Reason: Shortness Of Breath Or Wheezing) Discharge Orders: Discharge Order (Routine); Ordered 03/07/25 Ordered By: Kameron Romero Diet: Low fat, low cholesterol Activity on Discharge: As tolerated Stand Alone Forms: Patient Portal Discharge page Print Language: Polish Care Plan Goals: recovery from stroke Health Concerns: TIA Plan of Treatment: take Aspirin and liiptor as directed, follow up with primary care provider in 1 to 2 weeks, call for appointment Assessment: see above
--- NOTE | 2025-03-07 10:59 | P.CNNE_ITS ---
History of Present Illness Data of Consult Service Date: 03/07/25 Primary Care Provider: None Physician HPI Reason for consult: facial numbness This is a 64-year-old female with a history of asthma who presented with facial numbness onset 15 minute before presenting to ER. She also reports symptoms of numbness in the thumb, headache and dizziness. CT head is negative with possible old subtle White matter hypodensity left frontal pole. CTA is negative. MRI pending. Her symptoms are nearly all resolved. She has no history of migraines. She has no stroke risk factors other than mildly elevated lipids. She has a history of asthma for which she is on albuterol [facility] Social History Social History Patient Tobacco Use Status: Never used Tobacco Advance Directives: No Advance Directives Information Provided: No Do you have a plan to hurt others: No Plan Nutrition Risks: No Nutritional Risk service: No Meds Allergies Allergy/AdvReac Type Severity Reaction Status Date / Time No Known Allergies Allergy Verified 03/06/25 12:56 Active Medications: Current Medications Acetaminophen (Acetaminophen 325 Mg Tablet) 650 mg PO Q6H PRN PRN Reason: Pain, Mild 1-3,fever,headache Albuterol Sulfate (Albuterol Sulfate 90 Mcg 8 Gm Inhaler) 2 puff INHALE Q4H PRN PRN Reason: Shortness Of Breath Or Wheezin Albuterol Sulfate (Albuterol Sulfate (0.083%) 2.5 Mg/3 Ml Vial.Neb) 2.5 mg INHALE RQ4H WHILE AWAKE [facility] Last Admin: 03/07/25 07:58 Dose: Not Given Aspirin (Aspirin Enteric Coated 81 Mg Tablet.Dr) 81 mg PO BEDTIME [facility] Last Admin: 03/06/25 21:20 Dose: 81 mg Atorvastatin Calcium (Atorvastatin Calcium 40 Mg Tablet) 40 mg PO BEDTIME [facility] Last Admin: 03/06/25 21:20 Dose: 40 mg Enoxaparin Sodium (Enoxaparin Sodium 40 Mg/0.4 Ml Syringe) 40 mg SUBCUT Q24H [facility] Last Admin: 03/06/25 18:08 Dose: 40 mg Magnesium Hydroxide (Milk Of Magnesia 30 Ml Oral.Susp) 30 ml PO DAILY PRN PRN Reason: Constipation Melatonin (Melatonin 3 Mg Tablet) 6 mg PO BEDTIME PRN PRN Reason: Insomnia Ondansetron HCl (Ondansetron Hcl 4 Mg/2 Ml Vial) 4 mg IVPUSH Q8H PRN PRN Reason: Nausea and Vomiting Polyethylene Glycol (Polyethylene Glycol 3350 17 Gm Powd.Pack) 17 gm PO DAILY PRN PRN Reason: Constipation Home Medications ?Medication ?Instructions ?Recorded ?Confirmed ?Last Taken ?Type albuterol sulfate 2.5 mg/3 mL 2.5 mg inhalation Q4H wh eezing 03/06/25 03/06/25 Unknown History (0.083 %) solution for nebulization albuterol sulfate 90 mcg/actuation 2 puff inhalation Q 4-6H PRN 03/06/25 03/06/25 Unknown History aerosol inhaler Shortness Of Breath Or Wheez ing omega-3 fatty acids 1,000 mg 1,000 mg PO DAILY 5 03/06/25 03/05/25 History capsule Physical Exam 2 Vital Signs: Vital Signs: Last Vital Signs Temp 97.8 F 03/07/25 04:37 Pulse 62 03/07/25 04:37 Resp 14 03/07/25 04:37 BP 122/68 03/07/25 04:37 Pulse Ox 95 03/07/25 04:37 O2 Del Method Room Air 03/07/25 04:37 BMI result Body Mass Index 28.0 Neuro: Other: Normal, nonfocal neurological examination. Results Labs 03/06/25 13:05 03/07/25 04:13 Labs: Short CBC 03/06/25 Range/Units 13:05 WBC 5.6 (4.8-10.8) X10*3/uL Hgb 13.8 (12.0-16.0) g/dl Hct 41.6 (37.0-47.0) % Plt Count 203 (160-400) X10*3/uL BMP 03/06/25 03/07/25 13:05 04:13 Sodium 141 142 Potassium 4.1 3.7 Chloride 108 108 Carbon Dioxide 25 25 BUN 17 H 19 H Creatinine 0.64 0.68 Calcium 9.3 9.2 Liver Function 03/07/25 Range/Units 04:13 Total Bilirubin 0.2 (0.0-1.0) mg/dL AST 26 (5-31) U/L ALT 26 (0-31) U/L Alkaline Phosphatase 122 H (39-117) U/L Albumin 4.0 (3.5-5.0) g/dL Assessment and Plan (1) Left facial numbness: Status: Acute Plan New transient left facial weakness without history of migraine and no clear evidence of stroke or stroke risk factors. Etiology remains unclear. Recommendation MRI of the brain. CTA of the brain was normal. Would start a statin for her hyperlipidemia. Procedures Date of Service Date of Service: 03/07/25
[2025-03-07] MEDS: Albuterol Sulfate (0.083%) 2.5 MG/3 ML VIAL.NEB INHALE (11:05)
[2025-03-07 11:16] VITALS: PULSE 64; RESP 16; O2SAT 97
--- NOTE | 2025-03-07 15:17 | PC.NURSE ---
Discharge instruction reviewed with patient who verbalized understanding
--- NOTE | 2025-03-07 18:24 | PC.NURSE ---
pt called this evening wondering where her prescriptions were sent to, this nurse notified the patient that it showed [facility]
== END 2025-03-07 16:36 | disposition home or self-care (01) | DRG 47 ==
LOC: HO.ED 13:40 → HO.EDOVER 14:07 → HO.IMC 03-07 14:24
PROVIDERS: Physician Assistant Medical; Admitting Provider Internal Medicine; Emergency Provider Emergency Medicine; Visit Provider Internal Medicine
DX: G45.9 Transient cerebral ischemic attack, unspecified (principal); E78.5 Hyperlipidemia, unspecified; R20.0 Anesthesia of skin; J45.40 Moderate persistent asthma, uncomplicated; Z79.899 Other long term (current) drug therapy
CPT/HCPCS: 36415; 70450; 70496; 70498; 70551; 80048; 80053; 80061; 82947; 84484; 85025; 85610; 85730; 93005; 93306; 99285; J1650; Q9957; Q9967

== ENCOUNTER → 2025-03-06 12:55 | Outpatient (BNV) | payer BC, SELFPAY | PROVIDERS: Emergency Provider Emergency Medicine; Visit Provider Radiology Diagnostic Radiology | DX: R20.2 Paresthesia of skin (principal) | CPT/HCPCS: 70450; 70496; 70498 ==

== ENCOUNTER → 2025-03-06 12:55 | Outpatient (BNV) | payer BC, SELFPAY | PROVIDERS: Admitting Provider Internal Medicine; Emergency Provider Emergency Medicine; Visit Provider Internal Medicine Cardiovascular Disease | DX: R20.0 Anesthesia of skin (principal) | CPT/HCPCS: 93010 ==

== ENCOUNTER 2025-03-06 16:29 | Outpatient (BNV) | payer BC, SELFPAY | END 2025-03-07 12:40 | PROVIDERS: Admitting Provider Internal Medicine; Emergency Provider Emergency Medicine; Visit Provider Radiology Diagnostic Radiology | DX: R20.2 Paresthesia of skin (principal) | CPT/HCPCS: 70551 ==

== ENCOUNTER 2025-03-06 16:29 | Outpatient (BNV) | payer BC, SELFPAY | END 2025-03-07 07:00 | PROVIDERS: Admitting Provider Internal Medicine; Emergency Provider Emergency Medicine; Visit Provider Internal Medicine Cardiovascular Disease | DX: I63.9 Cerebral infarction, unspecified (principal); I51.89 Other ill-defined heart diseases | CPT/HCPCS: 93306 ==

== ENCOUNTER → 2025-03-06 16:29 | Outpatient (BNV) | payer BC, SELFPAY | PROVIDERS: Admitting Provider Internal Medicine; Emergency Provider Emergency Medicine; Visit Provider Internal Medicine | DX: I63.9 Cerebral infarction, unspecified (principal); R20.0 Anesthesia of skin | CPT/HCPCS: 99223; 99239 ==

== ENCOUNTER → 2025-03-06 16:29 | Outpatient (BNV) | payer BC, SELFPAY | PROVIDERS: Admitting Provider Internal Medicine; Emergency Provider Emergency Medicine; Visit Provider Psychiatry & Neurology Neurology | DX: R20.0 Anesthesia of skin (principal) | CPT/HCPCS: 99253 ==